=== PATIENT | male | born 2000 | race Caucasian/White ===

== ENCOUNTER 2024-10-17 20:55 | Emergency (ER) | payer BC, SELFPAY ==
[2024-10-17 20:57] VITALS: BP 145/90
[2024-10-17 21:11] VITALS: BMI 25.8
--- NOTE | 2024-10-17 21:18 | ED.GENMED ---
History of Present Illness
<Ronit Kearns MD - Last Filed: 10/17/24 21:20>
General
Chief Complaint: Crisis Evaluation
Source: patient
Time Seen by Provider: 10/17/24 21:08
History of Present Illness
History of Present Illness:
24-year-old male presents emergency department with complaints of increasing suicidal thoughts over the last month or so. He is seeking inpatient psychiatric care. He does not have a specific plan. He describes being hospitalized for suicidal
ideation last year, and felt that the program was helpful for him. He self discontinued his psychiatric medications earlier this year because he was feeling so well. He denies any physical complaint such as chest pain, shortness of breath, nausea,
vomiting, abdominal pain, fever, chills, complaints.
Past History
<Ronit Kearns MD - Last Filed: 10/17/24 21:20>
Past History
ED Past Medical History: Psychiatric
ED Past Surgical History: Urological
Social History
Tobacco: Smoker
Alcohol: Occasional
Drug: Marijuana
Personal: Single
Phy Exam
<Ronit Kearns MD - Last Filed: 10/17/24 21:20>
Physical Exam
Physical Exam:
GENERAL: Alert , in no apparent distress
EYE: pupils equal and reactive
NECK: Supple, no significant adenopathy.
ENT: o/p clr, mmm.
CARDIAC: Regular rate and rhythm .
LUNGS: Clear breath sounds bilaterally, no acute respiratory distress, no wheezes/rales/rhonchi
ABDOMEN: Soft, without focal tenderness, no r/g, no cvat
NEUROLOGICAL: Alert and oriented, no focal neuro deficits
SKIN: Warm and dry, skin intact.
MUSCULOSKELETAL: No edema, well perfused.
PSYCH: Cooperative, slightly flattened affect
Course
<Ronit Kearns MD - Last Filed: 10/17/24 21:20>
Orders/Labs/Results
Orders:
Orders
10/17/24 21:02
1:1 Observation - Suicide/ Violent Behavior As Directed
10/17/24 21:17
Crisis Consult Routine
Reason for Consult: si
10/17/24 21:58
Urine Drug Abuse Screen Urgent
Date Specimen was Collected: 10/17/24
Time Specimen was Collected: 21:46
Vital Signs
Initial and Last Documented VS:
Initial Vital Signs
Temp Pulse Resp BP Pulse Ox
98.3 F 90 16 145/90 99
10/17/24 20:57 10/17/24 20:57 10/17/24 20:57 10/17/24 20:57 10/17/24 20:57
Last Documented Vital Signs
Temp Pulse Resp BP Pulse Ox
98.3 F 60 18 120/62 100
10/17/24 20:57 10/18/24 00:15 10/18/24 00:15 10/18/24 00:15 10/18/24 00:15
<Speedy Chan, DO - Last Filed: 10/19/24 04:52>
Orders/Labs/Results
Orders:
Orders
10/17/24 21:02
1:1 Observation - Suicide/ Violent Behavior As Directed
10/17/24 21:17
Crisis Consult Routine
Reason for Consult: si
10/17/24 21:58
Urine Drug Abuse Screen Urgent
Date Specimen was Collected: 10/17/24
Time Specimen was Collected: 21:46
Vital Signs
Initial and Last Documented VS:
Initial Vital Signs
Temp Pulse Resp BP Pulse Ox
98.3 F 90 16 145/90 99
10/17/24 20:57 10/17/24 20:57 10/17/24 20:57 10/17/24 20:57 10/17/24 20:57
Last Documented Vital Signs
Temp Pulse Resp BP Pulse Ox
98.3 F 60 18 120/62 100
10/17/24 20:57 10/18/24 00:15 10/18/24 00:15 10/18/24 00:15 10/18/24 00:15
<Ronit Kearns MD - Last Filed: 10/17/24 21:20>
*Pulse Oximetry
SaO2: 99
Oxygen Mode of Delivery: Room air
<Speedy Chan DO - Last Filed: 10/19/24 04:52>
*Pulse Oximetry
Patient hypoxic: no
*Critical Care Note
Total Time (30-74mins, 75-104mins- exclusive of procedures): Not Applicable
<Ronit Kearns MD - Last Filed: 10/17/24 21:20>
Update Note
Update Note:
Patient presents to the Emergency Department with suicidal ideation
Number and Complexity of Problems Addressed at the Encounter
� Chronic conditions affecting care:
� Acute Exacerbation and/or Progression of Chronic Illness:
� Differential Diagnosis includes: But not limited to depression, anxiety, etc.
Amount and/or Complexity of Data to be Reviewed and Analyzed
� I performed an independent evaluation of and my interpretation is:
EKG:
CT:
Xrays:
Laboratory Studies:
Other:
� Review of other/old records reveals:
� Clinical information was obtained by an independent historian:
� Prescriptions/Medications Considered but not given:
� Further testing considered but not performed:
Risk of Complications and/or Morbidity or Mortality of Patient Management
� Social determinants of health affecting care:
� Discussion with other providers (PCP, Hospitalists, Consultants, etc):
� Escalation of care including admission/observation vs risk of discharge considered: Patient has been moved to room C2 for one-to-one observation. Case discussed with crisis, consult put in, and patient will be seen with
intention for placement in an inpatient facility from our emergency department.
<Speedy Chan DO - Last Filed: 10/19/24 04:52>
Update Note
Update Note:
Patient presents to the Emergency Department with suicidal ideation
Number and Complexity of Problems Addressed at the Encounter
� Chronic conditions affecting care:
� Acute Exacerbation and/or Progression of Chronic Illness:
� Differential Diagnosis includes: But not limited to depression, anxiety, etc.
Amount and/or Complexity of Data to be Reviewed and Analyzed
� I performed an independent evaluation of and my interpretation is:
EKG:
CT:
Xrays:
Laboratory Studies:
Other:
� Review of other/old records reveals:
� Clinical information was obtained by an independent historian:
� Prescriptions/Medications Considered but not given:
� Further testing considered but not performed:
Risk of Complications and/or Morbidity or Mortality of Patient Management
� Social determinants of health affecting care:
� Discussion with other providers (PCP, Hospitalists, Consultants, etc):
� Escalation of care including admission/observation vs risk of discharge considered: Patient has been moved to room C2 for one-to-one observation. Case discussed with crisis, consult put in, and patient will be seen with
intention for placement in an inpatient facility from our emergency department.
Update at 11:57 PM: Patient accepted to [facility] will be leaving at 2:30 in the morning
ED Attending Note
<Ronit Kearns MD - Last Filed: 10/17/24 21:20>
-
Portions of this chart may have been created with voice recognition software.� Occasional wrong word or��sound alike� substitutions may have occurred due to the inherent limitations of voice recognition software.
Discharge Plan
Departure
Patient Disposition: Psych Facility
Date of Disposition: 10/17/24
Time of Disposition: 21:20
Discharge Problem:
Depression
Prescriptions:
No Action
minoxidil
Interventions
Interventions:
*Risk Screen - Suicide Last Done: 10/17/24 20:57
*General Assessment Last Done: 10/17/24 23:50
*Neglect/Abuse Screening Last Done: 10/17/24 20:57
*ED- Fall Risk Assessment Last Done: 10/17/24 21:28
*ED COVID-19 Vaccine History Last Done: 10/17/24 21:28
*Nursing Disposition Last Done: 10/18/24 00:42
ED-Psychological Assessment Last Done: 10/17/24 21:05
Discharge Date and Time
Discharge Date/Time: 10/18/24 00:44
Print Language: HUNGARIAN
[2024-10-17 23:00] VITALS: BP 128/58
[2024-10-18 00:15] VITALS: BP 120/62
== END 2024-10-18 00:44 ==
LOC: EMR 20:55
PROVIDERS: EMERGENCY PHYSICIAN Emergency Medicine; FAMILY PHYSICIAN Internal Medicine
DX: R45.851 Suicidal ideations (principal); F32.A Depression, unspecified; F17.200 Nicotine dependence, unspecified, uncomplicated; Z91.128 Patient's intentional underdosing of medication regimen for other reason
CPT/HCPCS: 99285; 80306